=== PATIENT | male | born 1980 | race Caucasian/White ===

== ENCOUNTER 2019-05-03 00:20 | Emergency (ER) | payer OTHER ==
[2019-05-03] MEDS ORDERED: Pepcid 20 MG VIAL IV ONE ×2 (01:18→01:38)
[2019-05-03] MEDS ORDERED: GlucaGen 1 MG IV ONE (01:19)
[2019-05-03] MEDS ORDERED: Zofran 4 MG/2 ML VIAL IV ONE (01:20)
[2019-05-03] MEDS ORDERED: Zofran 4 MG/2 ML VIAL ONE (01:38)
[2019-05-03 01:39] LABS: Absolute Neutrophil Ct (ANC) 4.16 (1.4-6.9); BASOPHIL % 0.2 % (0.0-0.4); Basophil (Absolute #) 0.01 (0-0.4); Eosinophil % 1.5 % (0.00-5.0); Eosinophil (Absolute #) 0.08 (0-0.5); Hematocrit 45.3 % (42-50); Hemoglobin 16.1 gm/dl (12.5-18.0); Lymphocyte (Absolute #) 0.63 (1.0-4.6); Lymphocytes % 11.7 % (24.0-44.0); Mean Cell Volume 84.5 fl (78-100); Mean Corpuscular Hgb Concent. 35.5 g/dl (32-36); Mean Platelet Volume 10.1 fl (6-9.5); Monocyte (Absolute #) 0.51 (0.0-1.3); Monocytes % 9.5 % (0.0-12.0); Neutrophil % 77.1 % (36.0-66.0); Platelet Count 151 K/mm3 (150-450); Red Blood Count 5.36 M/mm3 (4.1-5.6); Red Cell Distribution Width 13.3 % (11.5-14.0); White Blood Count 5.4 K/mm3 (4.0-10.5)
[2019-05-03] MEDS ORDERED: GlucaGen 1 MG ONE (01:39)
[2019-05-03 01:49] LABS: ANION GAP 13.5 MEQ/L (5-15); BLOOD UREA NITROGEN 19 mg/dL (9-20); CHLORIDE 105 mmol/L (98-107); Calcium 8.8 mg/dL (8.4-10.2); Carbon Dioxide 25 mmol/L (22-30); Creatinine 1 1.13 mg/dL (0.66-1.25); Glucose 127 mg/dL (74-106); Potassium 3.9 mmol/L (3.5-5.1); SODIUM 139 mmol/L (137-145)
--- NOTE | 2019-05-03 02:16 | ERPHSYRPT ---
- History of Present Illness Time Seen by Provider: 05/03/19 00:50 Historian: patient Exam Limitations: no limitations Patient Subjective Stated Complaint: pt states that on Tuesday he had injury to the left hand, pt states that he went to [facility] and wound cleaned and started on antibiotic, pt states that he was given clarithromycin, pt states that he took first dose Tuesday night, pt states he took a second dose on Tuesday , pt states that he began to feel dizzy after first dose and by the second dose he had halos, pt stop taking medication and began doxy, pt states that tonight he was laying in bed and had a burning and irritation to the stomach, pt took 3 OTC antinausea pills, pt states that he threw up a golf ball size dark red blood clot Triage Nursing Assessment: pt ambulated into the ER, pt AxO x3, pt has soft round abdomen, pt has active bowel sounds, pt has tenderness to upper midline abdomen, vitals wnl Physician History: ATE CHICKEN AT APPROX. 5:30 YESTERDAY SINCE THEN HAS NOT BEEN ABLE TO EAT OR DRINK FLUIDS W/O THROWING UP . POS: HX : GERD Timing/Duration: today, constant, worse Activities at Onset: none Quality: aching, pressure, tightness Abdominal Pain Onset Location: epigastric Pain Radiation: no radiation Severity of Pain-Max: mild Severity of Pain-Current: moderate Modifying Factors: Improves With: eating, lying down, other (DRINKING FLUIDS ) Associated Symptoms: denies symptoms, back, chest pain, diaphoresis Previous symptoms: no prior history Allergies/Adverse Reactions: clarithromycin Allergy (Severe, Verified 05/03/19 00:58) Lightheadedness Sulfa (Sulfonamide Antibiotics) Allergy (Severe, Verified 05/03/19 00:58) Difficulty Breathing aspirin Allergy (Intermediate, Verified 05/03/19 00:58) Difficulty Breathing tramadol HCl [From Ultram] Allergy (Intermediate, Verified 05/03/19 00:58) Difficulty Breathing Penicillins Allergy (Mild, Verified 05/03/19 00:58) Difficulty Breathing Home Medications: Ibuprofen [Advil] 400 mg PO BID 05/03/19 [History] Hx Tetanus, Diphtheria Vaccination/Date Given: Yes Hx Influenza Vaccination/Date Given: No Hx Pneumococcal Vaccination/Date Given: No - Review of Systems Constitutional: No Symptoms Eyes: No Symptoms Ears, Nose, & Throat: Nose Congestion Respiratory: No Symptoms Cardiac: No Symptoms Abdominal/Gastrointestinal: Abdominal Pain, Nausea, Vomiting, Hematemesis, No Diarrhea, No Hematochezia, No Melena Genitourinary Symptoms: No Symptoms Musculoskeletal: No Symptoms Skin: No Symptoms Neurological: No Symptoms Psychological: No Symptoms Endocrine: No Symptoms Hematologic/Lymphatic: No Symptoms All Other Systems: Reviewed and Negative - Past Medical History Pertinent Past Medical History: Yes Neurological History: Migraines GI Medical History: GERD Psycho-Social History: Depression - Past Surgical History Past Surgical History: Yes Musculoskeletal: Orthopedic Surgery Other Surgical History: r rib resection - hernia repair - Social History Smoking Status: Never smoker Exposure to second hand smoke: No Drug Use: none Patient Lives Alone: No - Nursing Vital Signs Nursing Vital Signs: Initial Vital Signs Temperature 98.3 F 05/03/19 00:25 Respiratory Rate 13 05/03/19 00:25 Blood Pressure 143/89 05/03/19 00:25 Pain Scale Pain Intensity 0 - Physical Exam General Appearance: mild distress Eye Exam: PERRL/EOMI, eyes nml inspection Ears, Nose, Throat Exam: normal ENT inspection Neck Exam: normal inspection Respiratory Exam: normal breath sounds, lungs clear, No chest tenderness, No respiratory distress Cardiovascular Exam: regular rate/rhythm, normal heart sounds, No murmur Gastrointestinal/Abdomen Exam: soft, tenderness (EPIGASTRIC), No guarding Extremity Exam: normal inspection, normal range of motion, pelvis stable, No calf tenderness, No deformities Neurologic Exam: alert, oriented x 3, cooperative, 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, normal mood/affect, nml cerebellar function, nml station & gait Skin Exam: normal color Lymphatic Exam: adenopathy SpO2 Interpretation: normal O2 Delivery: Room Air - Course Nursing assessment & vital signs reviewed: Yes Ordered Tests: Active Orders 24 hr Category Date Time Status IV Insertion STAT Care 05/03/19 01:16 Active KUB Stat Exams 05/03/19 02:03 Taken BMP Stat Lab 05/03/19 01:35 Completed CBC W DIFF Stat Lab 05/03/19 01:35 Completed Medication Summary Discontinued Medications Generic Name Dose Route Start Last Admin Trade Name Freq PRN Reason Stop Dose Admin Al Hydrox/Mg Hydrox/Simethicone Confirm 05/03/19 02:38 Maalox Es 30 Ml Unit Dose Administered 05/03/19 02:39 Dose 30 ml .ROUTE .STK-MED ONE Famotidine 20 mg 05/03/19 01:18 05/03/19 01:44 Pepcid 20 Mg Vial IV 05/03/19 01:19 20 mg STAT ONE Administration Famotidine Confirm 05/03/19 01:38 Pepcid 20 Mg Vial Administered 05/03/19 01:39 Dose 20 mg IV .STK-MED ONE Glucagon 1 mg 05/03/19 01:19 05/03/19 01:44 Glucagen 1 Mg IV 05/03/19 01:20 1 mg STAT ONE Administration Glucagon Confirm 05/03/19 01:39 Glucagen 1 Mg Administered 05/03/19 01:40 Dose 1 mg .ROUTE .STK-MED ONE Lidocaine HCl Confirm 05/03/19 02:38 Xylocaine Hcl Viscous * Administered 05/03/19 02:39 Dose 15 ml .ROUTE .STK-MED ONE Magnesium Hydroxide 45 ml 05/03/19 02:31 05/03/19 02:45 Gi Cocktail 45 Ml (Maalox/Lidocaine) PO 05/03/19 02:32 45 ml STAT ONE Administration Ondansetron HCl 4 mg 05/03/19 01:20 05/03/19 01:43 Zofran 4 Mg/2 Ml Vial IV 05/03/19 01:21 4 mg STAT ONE Administration Ondansetron HCl Confirm 05/03/19 01:38 Zofran 4 Mg/2 Ml Vial Administered 05/03/19 01:39 Dose 4 mg .ROUTE .STK-MED ONE Lab/Rad Data: Laboratory Result Diagrams 05/03/19 01:35 05/03/19 01:35 Laboratory Results 05/03/19 05/03/19 Range/Units 01:35 01:35 WBC 5.4 (4.0-10.5) K/mm3 RBC 5.36 (4.1-5.6) M/mm3 Hgb 16.1 (12.5-18.0) gm/dl Hct 45.3 (42-50) % MCV 84.5 (78-100) fl MCH 30.0 (26-32) pg MCHC 35.5 (32-36) g/dl RDW 13.3 (11.5-14.0) % Plt Count 151 (150-450) K/mm3 MPV 10.1 H (6-9.5) fl Gran % 77.1 H (36.0-66.0) % Eos # (Auto) 0.08 (0-0.5) Absolute Lymphs (auto) 0.63 L (1.0-4.6) Absolute Monos (auto) 0.51 (0.0-1.3) Lymphocytes % 11.7 L (24.0-44.0) % Monocytes % 9.5 (0.0-12.0) % Eosinophils % 1.5 (0.00-5.0) % Basophils % 0.2 (0.0-0.4) % Absolute Granulocytes 4.16 (1.4-6.9) Basophils # 0.01 (0-0.4) Sodium 139 (137-145) mmol/L Potassium 3.9 (3.5-5.1) mmol/L Chloride 105 (98-107) mmol/L Carbon Dioxide 25 (22-30) mmol/L Anion Gap 13.5 (5-15) MEQ/L BUN 19 (9-20) mg/dL Creatinine 1.13 (0.66-1.25) mg/dL Estimated GFR > 60.0 ML/MIN Glucose 127 H (74-106) mg/dL Calcium 8.8 (8.4-10.2) mg/dL - Progress Progress: improved Counseled pt/family regarding: lab results, diagnosis, need for follow-up, rad results - Departure Departure Disposition: Home Clinical Impression: Erosive esophagitis Acute gastritis without bleeding Qualifiers: Gastritis type: unspecified gastritis Qualified Code(s): K29.00 - Acute gastritis without bleeding Condition: Stable Critical Care Time: No Referrals: ROSELINE GAN [Primary Care Provider] - Additional Instructions: DR MACKEY --GEN SURG FOR EGD SCOPE DISCUSSED RN TO GIVE CONTACT INSTRUCTION DIET DISCUSSED IN THE ER
[2019-05-03] MEDS ORDERED: GI COCKTAIL 45 ML (Maalox/Lidocaine) PO ONE (02:31)
[2019-05-03] MEDS ORDERED: XYLOCAINE HCl Viscous ONE (02:38)
[2019-05-03] MEDS ORDERED: MAALOX ES 30 ML UNIT DOSE ONE (02:38)
[2019-05-03 04:20] VITALS: BP 126/77; PULSE 61; O2SAT 97
--- NOTE | 2019-05-03 08:53 | XRAY ---
Indication: Vomiting blood. Comparison: July 29, 2007. KUB again demonstrates mild diffuse scattered colonic fecal debris. No focal bowel dilatation, obstruction, or large free air. Solid organs and osseous structures unremarkable. Lung bases are clear. Impression: Mild fecal stasis without obstruction.
== END 2019-05-03 04:28 | disposition home or self-care (01) ==
LOC: ED 00:20
DX: K22.10 Ulcer of esophagus without bleeding (principal); K29.00 Acute gastritis without bleeding
CPT/HCPCS: 36000; 36415; 74018; 80048; 85025; 96374; 96375; 99284; J1610; J2405; A9270-GY

== ENCOUNTER 2020-07-23 09:30 | Emergency (ER) | payer OTHER ==
[2020-07-23] MEDS ORDERED: Zofran 4 MG/2 ML VIAL IV ONE (09:46)
--- NOTE | 2020-07-23 09:46 | ERPHSYRPT ---
- History of Present Illness Time Seen by Provider: 07/23/20 09:46 Historian: patient Exam Limitations: no limitations Physician History: This is a 40-year-old white male has a history of PTSD and gastroesophageal reflux disease as well as right side thoracic outlet syndrome requiring surgical intervention in the past and presents with 1 day history of left anterior chest pain that radiates into his left shoulder. Patient does do a lot of heavy weight lifting on a daily basis. He is concerned that he might have torn a muscle or he has a blood clot present. Patient cannot take aspirin. He has taken Vicodin as well as long-acting morphine in the past. He has also taken Toradol in the past and is on daily ibuprofen. He is not short of breath. He had no fever. He has no cough but did notice that when he sneezed there was significant pain in the same area. He has had no direct chest trauma. His primary care physician is Dr. Greenberg Activities at Onset: none Quality: sharpness, stabbing Location: other (Left anterior chest wall) Chest Pain Radiation: arm (Left shoulder) Severity of Pain-Max: moderate Severity of Pain-Current: moderate Modifying Factors: Improves With: movement Associated Symptoms: hurts to breathe, No shortness of breath, No cough Prior Chest Pain/Cardiac Workup: no prior chest pain Nitro Today/Relief: no nitro taken today Aspirin Treatment Today: no aspirin today Allergies/Adverse Reactions: clarithromycin Allergy (Severe, Verified 07/23/20 09:37) Lightheadedness Sulfa (Sulfonamide Antibiotics) Allergy (Severe, Verified 07/23/20 09:37) Difficulty Breathing aspirin Allergy (Intermediate, Verified 07/23/20 09:37) Difficulty Breathing tramadol HCl [From Ultram] Allergy (Intermediate, Verified 07/23/20 09:37) Difficulty Breathing Penicillins Allergy (Mild, Verified 07/23/20 09:37) Difficulty Breathing Home Medications: Ibuprofen [Advil] 400 mg PO BID 05/03/19 [History] Fluoxetine HCl 20 mg [Prozac 20 MG] 1 ea DAILY 07/23/20 [History] Fluticasone Furoate [Veramyst] 1 ea DAILY 07/23/20 [History] Omeprazole Magnesium [Prilosec Otc] 1 ea DAILY 07/23/20 [History] Hx Tetanus, Diphtheria Vaccination/Date Given: Yes Hx Influenza Vaccination/Date Given: No Hx Pneumococcal Vaccination/Date Given: No Travel Risk - International Travel Have you traveled outside of the country in past 3 weeks: No - Coronavirus Screening Are you exhibiting any of the following symptoms?: No Close contact with a COVID-19 positive Pt in past 14-21 Days: No - Review of Systems Constitutional: No Symptoms Eyes: No Symptoms Ears, Nose, & Throat: No Symptoms Respiratory: No Symptoms Cardiac: Chest Pain Abdominal/Gastrointestinal: No Symptoms Genitourinary Symptoms: No Symptoms Musculoskeletal: No Symptoms Skin: No Symptoms Neurological: No Symptoms Psychological: No Symptoms Endocrine: No Symptoms Hematologic/Lymphatic: No Symptoms Immunological/Allergic: No Symptoms All Other Systems: Reviewed and Negative - Past Medical History Pertinent Past Medical History: Yes Neurological History: Migraines, Other Cardiac History: No Pertinent History Respiratory History: No Pertinent History Endocrine Medical History: No Pertinent History Musculoskeletal History: Fractures, Other GI Medical History: GERD, Other Psycho-Social History: Depression, Other Other Medical History: HX SURGERY LEFT WRIST FOR TORN CARTILAGE AND CARPAL TUNNEL 10/29/19. HX OF BILATERAL CARTILAGE TEARS WITH HX OF 2 ARTHROSCOPIC SURGERIES EACH KNEE. MOST RECENT SURGERY 2010. HX [place]T ANKLE SURGERIES DUE TO TORN LIGAMENTS. PATIENT STATES HE IS UNABLE TO REMEMBER DATES. ptsd, hital hernia. FX RIGHT FOREARM CHILD. RIGHT UPPER RIB RESECTION WITH BLOOD CLOT REMOVAL DUE TO TOS. INGUINAL HERNIA REPAIR LEFT. TONSILLECTOMY - Past Surgical History Past Surgical History: Yes Respiratory: Other Gastrointestinal: Hernia Repair Musculoskeletal: Orthopedic Surgery Other Surgical History: r rib resection - hernia repair, thoraic outlet syndrome k,arm surgery - Social History Smoking Status: Never smoker Exposure to second hand smoke: No Drug Use: none Patient Lives Alone: No - Nursing Vital Signs Nursing Vital Signs: Initial Vital Signs Temperature 97.2 F 07/23/20 09:31 Pulse Rate 67 07/23/20 09:31 Respiratory Rate 18 07/23/20 09:31 Blood Pressure 151/106 07/23/20 09:31 O2 Sat by Pulse Oximetry 97 07/23/20 09:31 Pain Scale Pain Intensity 5 - Physical Exam General Appearance: no apparent distress, alert, anxiety Eye Exam: PERRL/EOMI, eyes nml inspection Ears, Nose, Throat Exam: normal ENT inspection, moist mucous membranes Neck Exam: normal inspection, non-tender, supple, full range of motion Respiratory Exam: normal breath sounds, chest tenderness, lungs clear (Chest wall left anterior chest), airway intact, No respiratory distress Cardiovascular Exam: regular rate/rhythm, normal heart sounds, normal peripheral pulses Gastrointestinal/Abdomen Exam: soft, normal bowel sounds, No tenderness Back Exam: normal inspection, normal range of motion, No CVA tenderness, No vertebral tenderness Extremity Exam: normal inspection, normal range of motion, pelvis stable Neurologic Exam: alert, oriented x 3, cooperative, 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 No acute ischemic changes on today's EKG.) Ordered Tests: Active Orders 24 hr Category Date Time Status Eap Clinician STAT Care 07/23/20 09:49 Active EKG-ER Only STAT Care 07/23/20 09:46 Active IV Insertion STAT Care 07/23/20 09:46 Active Pulse Oximetry (ED) STAT Care 07/23/20 09:46 Active CHEST 2 VIEWS (PA AND LAT) Stat Exams 07/23/20 10:35 Completed CBC W DIFF Stat Lab 07/23/20 10:00 Completed CMP Stat Lab 07/23/20 10:00 Completed D-DIMER QUANTITATIVE Stat Lab 07/23/20 10:00 Completed NT PRO BNP Stat Lab 07/23/20 10:00 Completed PROTIME WITH INR Stat Lab 07/23/20 10:00 Completed TROPONIN Q3H Lab 07/23/20 09:46 Completed TROPONIN Q3H Lab 07/23/20 14:15 Ordered TROPONIN Q3H Lab 07/23/20 17:15 Ordered TROPONIN Q3H Lab 07/23/20 20:15 Ordered TROPONIN Q3H Lab 07/23/20 23:15 Ordered Medication Summary Discontinued Medications Generic Name Dose Route Start Last Admin Trade Name Freq PRN Reason Stop Dose Admin Lorazepam 1 mg 07/23/20 09:49 07/23/20 10:10 Ativan 2 Mg/1 Ml Vial IV 07/23/20 09:50 1 mg STAT ONE Administration Lorazepam Confirm 07/23/20 10:00 Ativan 2 Mg/1 Ml Vial Administered 07/23/20 10:01 Dose 2 mg .ROUTE .STK-MED ONE Ondansetron HCl 4 mg 07/23/20 09:46 07/23/20 10:02 Zofran 4 Mg/2 Ml Vial IV 07/23/20 09:47 4 mg STAT ONE Administration Ondansetron HCl Confirm 07/23/20 10:01 Zofran 4 Mg/2 Ml Vial Administered 07/23/20 10:02 Dose 4 mg .ROUTE .STK-MED ONE Lab/Rad Data: Laboratory Result Diagrams 07/23/20 10:00 07/23/20 10:00 Laboratory Results 07/23/20 07/23/20 07/23/20 Range/Units 10:00 10:00 10:00 WBC 4.5 (4.0-10.5) K/mm3 RBC 5.68 H (4.1-5.6) M/mm3 Hgb 16.6 (12.5-18.0) gm/dl Hct 49.0 (42-50) % MCV 86.3 (78-100) fl MCH 29.2 (26-32) pg MCHC 33.9 (32-36) g/dl RDW 12.7 (11.5-14.0) % Plt Count 200 (150-450) K/mm3 MPV 10.6 (7.5-11.0) fl Gran % 56.1 (36.0-66.0) % Eos # (Auto) 0.06 (0-0.5) Absolute Lymphs (auto) 1.44 (1.0-4.6) Absolute Monos (auto) 0.46 (0.0-1.3) Lymphocytes % 32.1 (24.0-44.0) % Monocytes % 10.3 (0.0-12.0) % Eosinophils % 1.3 (0.00-5.0) % Basophils % 0.2 (0.0-0.4) % Absolute Granulocytes 2.51 (1.4-6.9) Basophils # 0.01 (0-0.4) PT 12.3 (8.83-12.87) SECONDS INR 1.09 (0.8-3.0) D-Dimer < 215 L (215-500) ng/mL Sodium 138 (137-145) mmol/L Potassium 3.7 (3.5-5.1) mmol/L Chloride 102 (98-107) mmol/L Carbon Dioxide 24 (22-30) mmol/L Anion Gap 16.3 H (5-15) MEQ/L BUN 17 (9-20) mg/dL Creatinine 1.12 (0.66-1.25) mg/dL Estimated GFR > 60.0 ML/MIN Glucose 134 H (74-106) mg/dL Calcium 9.5 (8.4-10.2) mg/dL Total Bilirubin 0.60 (0.2-1.3) mg/dL AST 51 (17-59) U/L ALT 37 (0-50) U/L Alkaline Phosphatase 83 (38-126) U/L Troponin I (0.000-0.034) ng/mL NT-Pro-B Natriuret Pep 11.3 (0-450) pg/mL Serum Total Protein 7.8 (6.3-8.2) g/dL Albumin 4.7 (3.5-5.0) g/dL 07/23/20 Range/Units 09:46 WBC (4.0-10.5) K/mm3 RBC (4.1-5.6) M/mm3 Hgb (12.5-18.0) gm/dl Hct (42-50) % MCV (78-100) fl MCH (26-32) pg MCHC (32-36) g/dl RDW (11.5-14.0) % Plt Count (150-450) K/mm3 MPV (7.5-11.0) fl Gran % (36.0-66.0) % Eos # (Auto) (0-0.5) Absolute Lymphs (auto) (1.0-4.6) Absolute Monos (auto) (0.0-1.3) Lymphocytes % (24.0-44.0) % Monocytes % (0.0-12.0) % Eosinophils % (0.00-5.0) % Basophils % (0.0-0.4) % Absolute Granulocytes (1.4-6.9) Basophils # (0-0.4) PT (8.83-12.87) SECONDS INR (0.8-3.0) D-Dimer (215-500) ng/mL Sodium (137-145) mmol/L Potassium (3.5-5.1) mmol/L Chloride (98-107) mmol/L Carbon Dioxide (22-30) mmol/L Anion Gap (5-15) MEQ/L BUN (9-20) mg/dL Creatinine (0.66-1.25) mg/dL Estimated GFR ML/MIN Glucose (74-106) mg/dL Calcium (8.4-10.2) mg/dL Total Bilirubin (0.2-1.3) mg/dL AST (17-59) U/L ALT (0-50) U/L Alkaline Phosphatase (38-126) U/L Troponin I < 0.012 (0.000-0.034) ng/mL NT-Pro-B Natriuret Pep (0-450) pg/mL Serum Total Protein (6.3-8.2) g/dL Albumin (3.5-5.0) g/dL - Progress Progress: improved, re-examined Air Movement: good Progress Note: 07/23/20 11:13 Chest x-ray shows no acute cardiopulmonary process 07/23/20 11:47 Medical decision making: This patient likely has a muscle strain on his chest wall. His pain significantly improved with the muscle relaxant. Today, the patient contacted his primary care physician's office and he has an appointment scheduled with him tomorrow. His cardiac work-up here today is negative. He is more comfortable and states that he feels comfortable going home and he will follow up with Dr. Greenberg's office tomorrow. Blood Culture(s) Obtained: No Antibiotics given: No Counseled pt/family regarding: lab results, diagnosis, need for follow-up, rad results - Departure Departure Disposition: Home Clinical Impression: Chest wall pain Condition: Stable Critical Care Time: No Referrals: ALICIA CONCEPCION Jr., MD [Primary Care Provider] - Additional Instructions: Follow-up with your primary care doctor for further management. Take your medication as prescribed. Continue your ibuprofen as prescribed. Stop heavy lifting until after you are evaluated by your primary care physician and released to return to full activity. Prescriptions: Hydrocodone/APAP 5/325 [[place] 5/325 mg] 1 each PO Q8H PRN PRN #6 tablet MDD 3 PRN Reason: Pain
[2020-07-23] MEDS ORDERED: Ativan 2 MG/1 ML VIAL IV ONE (09:49)
[2020-07-23] MEDS ORDERED: Ativan 2 MG/1 ML VIAL ONE (10:00)
[2020-07-23] MEDS ORDERED: Zofran 4 MG/2 ML VIAL ONE (10:01)
[2020-07-23 10:23] LABS: INR 1.09 (0.8-3.0); PROTIME 12.3 SECONDS (8.83-12.87)
[2020-07-23 10:28] LABS: D-DIMER QUANTITATIVE < 215 ng/mL (215-500)
[2020-07-23 10:30] LABS: Absolute Neutrophil Ct (ANC) 2.51 (1.4-6.9); BASOPHIL % 0.2 % (0.0-0.4); Basophil (Absolute #) 0.01 (0-0.4); Eosinophil % 1.3 % (0.00-5.0); Eosinophil (Absolute #) 0.06 (0-0.5); Hemoglobin 16.6 gm/dl (12.5-18.0); Lymphocyte (Absolute #) 1.44 (1.0-4.6); Lymphocytes % 32.1 % (24.0-44.0); Mean Cell Volume 86.3 fl (78-100); Mean Corpuscular Hemoglobin 29.2 pg (26-32); Mean Corpuscular Hgb Concent. 33.9 g/dl (32-36); Mean Platelet Volume 10.6 fl (7.5-11.0); Monocyte (Absolute #) 0.46 (0.0-1.3); Monocytes % 10.3 % (0.0-12.0); Neutrophil % 56.1 % (36.0-66.0); Platelet Count 200 K/mm3 (150-450); Red Blood Count 5.68 M/mm3 (4.1-5.6); Red Cell Distribution Width 12.7 % (11.5-14.0); White Blood Count 4.5 K/mm3 (4.0-10.5)
[2020-07-23 10:35] LABS: ALBUMIN 4.7 g/dL (3.5-5.0); ALKALINE PHOSPHATASE 83 U/L (38-126); ANION GAP 16.3 MEQ/L (5-15); BLOOD UREA NITROGEN 17 mg/dL (9-20); CHLORIDE 102 mmol/L (98-107); Calcium 9.5 mg/dL (8.4-10.2); Carbon Dioxide 24 mmol/L (22-30); Creatinine 1 1.12 mg/dL (0.66-1.25); EST GLOMERULAR FILTRATION RATE > 60.0 ML/MIN; Glucose 134 mg/dL (74-106); NT PRO BNP 11.3 pg/mL (0-450); Potassium 3.7 mmol/L (3.5-5.1); SGOT/AST 51 U/L (17-59); SGPT/ALT 37 U/L (0-50); SODIUM 138 mmol/L (137-145); Total Protein 7.8 g/dL (6.3-8.2)
--- NOTE | 2020-07-23 10:43 | XRAY ---
Indication: Chest and shoulder pain. Comparison: April 13, 2019. PA/lateral chest again demonstrates normal heart, lungs, and bony thorax with incidental left upper lobe calcified granulomas, right apical surgical clips, and right 1st rib resection.
[2020-07-23 11:53] VITALS: BP 133/81; PULSE 64; O2SAT 95
== END 2020-07-23 11:57 | disposition home or self-care (01) ==
LOC: ED 09:30
DX: R07.89 Other chest pain (principal); K21.9 Gastro-esophageal reflux disease without esophagitis; F43.12 Post-traumatic stress disorder, chronic; Z79.899 Other long term (current) drug therapy
CPT/HCPCS: 36000; 36415; 71046; 80053; 83880; 84484; 85025; 85379; 85610; 93005; 93041; 94760; 96374; 96375; 99284; J2060; J2405

== ENCOUNTER 2020-10-15 10:13 | Emergency (ER) | payer OTHER ==
[2020-10-15 10:30] LABS: Absolute Neutrophil Ct (ANC) 3.33 (1.4-6.9); BASOPHIL % 0.4 % (0.0-0.4); Basophil (Absolute #) 0.02 (0-0.4); Eosinophil % 1.3 % (0.00-5.0); Eosinophil (Absolute #) 0.07 (0-0.5); Hematocrit 48.9 % (42-50); Hemoglobin 16.9 gm/dl (12.5-18.0); Lymphocyte (Absolute #) 1.42 (1.0-4.6); Mean Corpuscular Hemoglobin 29.4 pg (26-32); Mean Corpuscular Hgb Concent. 34.6 g/dl (32-36); Mean Platelet Volume 9.8 fl (7.5-11.0); Monocyte (Absolute #) 0.41 (0.0-1.3); Monocytes % 7.8 % (0.0-12.0); Neutrophil % 63.5 % (36.0-66.0); Platelet Count 204 K/mm3 (150-450); Red Blood Count 5.75 M/mm3 (4.1-5.6); Red Cell Distribution Width 12.7 % (11.5-14.0); White Blood Count 5.3 K/mm3 (4.0-10.5)
--- NOTE | 2020-10-15 10:35 | XRAY ---
Indication: Chest pain. Comparison: July 23, 2020. Portable chest again demonstrates normal heart, lungs, and bony thorax with incidental left upper lobe calcified granuloma, right apical surgical clips, and right 1st rib resection.
[2020-10-15 10:37] LABS: INR 1.09 (0.8-3.0); PROTIME 12.3 SECONDS (8.83-12.87)
[2020-10-15] MEDS ORDERED: PROTONIX 40 MG IV IV ONE ×2 (10:38→10:43)
[2020-10-15 10:39] LABS: PTT 33.5 SECONDS (24.1-36.1)
[2020-10-15 10:50] LABS: ALBUMIN 4.8 g/dL (3.5-5.0); ALKALINE PHOSPHATASE 85 U/L (38-126); ANION GAP 14.4 MEQ/L (5-15); BLOOD UREA NITROGEN 10 mg/dL (9-20); CHLORIDE 100 mmol/L (98-107); Calcium 9.5 mg/dL (8.4-10.2); Carbon Dioxide 28 mmol/L (22-30); Creatinine 1 1.08 mg/dL (0.66-1.25); EST GLOMERULAR FILTRATION RATE > 60.0 ML/MIN; Glucose 114 mg/dL (74-106); NT PRO BNP 23.3 pg/mL (0-450); SGOT/AST 83 U/L (17-59); SGPT/ALT 145 U/L (0-50); SODIUM 139 mmol/L (137-145); Total Protein 7.8 g/dL (6.3-8.2)
--- NOTE | 2020-10-15 11:04 | ERPHSYRPT ---
- History of Present Illness Historian: patient Patient Subjective Stated Complaint: chest pain onset this am Triage Nursing Assessment: pt to ED c/o CP to mid sternum onset this am while driving to PCP appt. pt rates 10/10 pain that is tight, does not radiate, and is not alleviated or aggrivated by factors. only associated sx is occasional nausea after eating and "dizziness r/t gabapentin." heart sounds clear. skin PWD. Physician History: 40 yo wm w inferior, substernal pain which radiates superiorly x 40min. Pain w sudden onset. He denies N/V/diaphoresis/Dyspnea. Nothing makes the pain better or worse. Pt denies HTN/DM/Hyperlipidemia/tobacco use/Remote FH of CAD in grandmother. Pain was severe when he arrived to the ER but has been subsiding since arrival to ER. He had a Roxanna procedure in [facility] 3 months ago and has been having problems since the procedure. Timing/Duration: other (40 min) Activities at Onset: rest Quality: other (gas bubble) Location: substernal Severity of Pain-Max: severe Severity of Pain-Current: moderate Modifying Factors: Improves With: nothing Associated Symptoms: No nausea, No vomiting, No palpitations, No heartburn, No abdominal pain, No shortness of breath, No cough, No hurts to breathe, No diaphoresis, No chills, No fever, No fatigue, No weakness, No swelling/lump in chest, No syncope, No rash, No headache, No dizziness, No edema, No back pain Prior Chest Pain/Cardiac Workup: no prior chest pain Nitro Today/Relief: no nitro taken today Aspirin Treatment Today: no aspirin today Allergies/Adverse Reactions: clarithromycin Allergy (Severe, Verified 10/15/20 10:36) Lightheadedness Sulfa (Sulfonamide Antibiotics) Allergy (Severe, Verified 10/15/20 10:36) Difficulty Breathing aspirin Allergy (Intermediate, Verified 10/15/20 10:36) Difficulty Breathing tramadol HCl [From Ultram] Allergy (Intermediate, Verified 10/15/20 10:36) Difficulty Breathing Penicillins Allergy (Mild, Verified 10/15/20 10:36) Difficulty Breathing Home Medications: Ibuprofen [Advil] 400 mg PO BID 05/03/19 [History] Fluoxetine HCl 20 mg [Prozac 20 MG] 1 ea DAILY 07/23/20 [History] Fluticasone Furoate [Veramyst] 1 ea DAILY 07/23/20 [History] Omeprazole Magnesium [Prilosec Otc] 1 ea DAILY 07/23/20 [History] Ciprofloxacin HCl [Cipro] 250 mg PO BID 10/15/20 [History] Dicyclomine HCl 20 mg [Bentyl 20 mg] 20 mg PO TID PRN 10/15/20 [History] Diphenoxylate HCl/Atropine [Lomotil] 1 udtab PO TID PRN 10/15/20 [History] Metronidazole 500 mg [Flagyl 500 MG] 500 mg PO BID 10/15/20 [History] Hx Tetanus, Diphtheria Vaccination/Date Given: Yes Hx Influenza Vaccination/Date Given: No Hx Pneumococcal Vaccination/Date Given: No Travel Risk - International Travel Have you traveled outside of the country in past 3 weeks: No - Coronavirus Screening Are you exhibiting any of the following symptoms?: No Close contact with a COVID-19 positive Pt in past 14-21 Days: No - Vaccine Status Have you recieved a Covid-19 vaccination: No - Review of Systems Constitutional: No Symptoms Eyes: No Symptoms Ears, Nose, & Throat: No Symptoms Respiratory: No Symptoms Cardiac: Chest Pain Abdominal/Gastrointestinal: No Symptoms Genitourinary Symptoms: No Symptoms Musculoskeletal: No Symptoms Skin: No Symptoms Neurological: No Symptoms Psychological: No Symptoms Endocrine: No Symptoms Hematologic/Lymphatic: No Symptoms Immunological/Allergic: No Symptoms - Past Medical History Pertinent Past Medical History: Yes Neurological History: Migraines, Other Cardiac History: No Pertinent History Respiratory History: No Pertinent History Endocrine Medical History: No Pertinent History Musculoskeletal History: Fractures, Other GI Medical History: GERD, Other Psycho-Social History: Depression, Other Other Medical History: HX SURGERY LEFT WRIST FOR TORN CARTILAGE AND CARPAL TUNNEL 10/29/19. HX OF BILATERAL CARTILAGE TEARS WITH HX OF 2 ARTHROSCOPIC SURGERIES EACH KNEE. MOST RECENT SURGERY 2010. HX ROOSEVELT ANKLE SURGERIES DUE TO TORN LIGAMENTS. PATIENT STATES HE IS UNABLE TO REMEMBER DATES. ptsd, hital hernia. FX RIGHT FOREARM CHILD. RIGHT UPPER RIB RESECTION WITH BLOOD CLOT REMOVAL DUE TO TOS. INGUINAL HERNIA REPAIR LEFT. TONSILLECTOMY - Past Surgical History Past Surgical History: Yes Respiratory: Other Gastrointestinal: Hernia Repair Musculoskeletal: Orthopedic Surgery Other Surgical History: r rib resection - hernia repair, thoraic outlet syndrome k,arm surgery - Social History Smoking Status: Never smoker Exposure to second hand smoke: No Drug Use: none Patient Lives Alone: No Significant Family History: no pertinent family hx - Nursing Vital Signs Nursing Vital Signs: Initial Vital Signs Temperature 98.6 F 10/15/20 10:14 Pulse Rate 75 10/15/20 10:14 Respiratory Rate 16 10/15/20 10:14 Blood Pressure 166/107 10/15/20 10:14 O2 Sat by Pulse Oximetry 98 10/15/20 10:14 Pain Scale Pain Intensity 0 - Physical Exam General Appearance: no apparent distress, anxiety Eye Exam: PERRL/EOMI, eyes nml inspection Ears, Nose, Throat Exam: normal ENT inspection, TMs normal, pharynx normal, moist mucous membranes Neck Exam: normal inspection, non-tender, supple, full range of motion, No meningismus, No mass, No Brudzinski, No Kernig's Respiratory Exam: normal breath sounds, lungs clear, airway intact, No chest tenderness, No respiratory distress Cardiovascular Exam: regular rate/rhythm, normal heart sounds, normal peripheral pulses, No murmur, No friction rub Gastrointestinal/Abdomen Exam: soft, normal bowel sounds, No tenderness Back Exam: normal inspection, normal range of motion, No CVA tenderness Extremity Exam: normal inspection, normal range of motion Neurologic Exam: alert, oriented x 3, cooperative, doctor of nursing practice II-XII nml as tested, normal mood/affect, nml cerebellar function, nml station & gait, sensation nml, No motor deficits, No sensory deficit Skin Exam: normal color, warm, dry Lymphatic Exam: No adenopathy SpO2 Interpretation: normal SpO2: 98 O2 Delivery: Room Air - Course EKG Interpreted by Me: RATE (NSR/R62/Normal QT-QTc/No acute ST-Twave changes) - CT Exams Chest CT Interpretation: Negative (Nothing acute) Ordered Tests: Active Orders 24 hr Category Date Time Status EKG-ER Only STAT Care 10/15/20 10:16 Completed IV Insertion STAT Care 10/15/20 13:10 Completed CHEST 1 VIEW (PORTABLE) Stat Exams 10/15/20 10:16 Completed CBC W DIFF Stat Lab 10/15/20 10:20 Completed CMP Stat Lab 10/15/20 10:20 Completed NT PRO BNP Stat Lab 10/15/20 10:20 Completed PROTIME WITH INR Stat Lab 10/15/20 10:20 Completed PTT Stat Lab 10/15/20 10:20 Completed TROPONIN Q3H Lab 10/15/20 10:20 Completed TROPONIN Q3H Lab 10/15/20 12:18 Completed Medication Summary Discontinued Medications Generic Name Dose Route Start Last Admin Trade Name Freq PRN Reason Stop Dose Admin Pantoprazole Sodium 40 mg 10/15/20 10:38 10/15/20 10:45 Protonix 40 Mg Iv IV 10/15/20 10:39 40 mg STAT ONE Administration Pantoprazole Sodium Confirm 10/15/20 10:43 Protonix 40 Mg Iv Administered 10/15/20 10:44 Dose 40 mg IV .STK-MED ONE Lab/Rad Data: Laboratory Result Diagrams 10/15/20 10:20 10/15/20 10:20 Laboratory Results 10/15/20 10/15/20 10/15/20 Range/Units 12:18 10:20 10:20 WBC (4.0-10.5) K/mm3 RBC (4.1-5.6) M/mm3 Hgb (12.5-18.0) gm/dl Hct (42-50) % MCV (78-100) fl MCH (26-32) pg MCHC (32-36) g/dl RDW (11.5-14.0) % Plt Count (150-450) K/mm3 MPV (7.5-11.0) fl Gran % (36.0-66.0) % Eos # (Auto) (0-0.5) Absolute Lymphs (auto) (1.0-4.6) Absolute Monos (auto) (0.0-1.3) Lymphocytes % (24.0-44.0) % Monocytes % (0.0-12.0) % Eosinophils % (0.00-5.0) % Basophils % (0.0-0.4) % Absolute Granulocytes (1.4-6.9) Basophils # (0-0.4) PT 12.3 (8.83-12.87) SECONDS INR 1.09 (0.8-3.0) APTT 33.5 (24.1-36.1) SECONDS Sodium (137-145) mmol/L Potassium (3.5-5.1) mmol/L Chloride (98-107) mmol/L Carbon Dioxide (22-30) mmol/L Anion Gap (5-15) MEQ/L BUN (9-20) mg/dL Creatinine (0.66-1.25) mg/dL Estimated GFR ML/MIN Glucose (74-106) mg/dL Calcium (8.4-10.2) mg/dL Total Bilirubin (0.2-1.3) mg/dL AST (17-59) U/L ALT (0-50) U/L Alkaline Phosphatase (38-126) U/L Troponin I < 0.012 < 0.012 (0.000-0.034) ng/mL NT-Pro-B Natriuret Pep (0-450) pg/mL Serum Total Protein (6.3-8.2) g/dL Albumin (3.5-5.0) g/dL 10/15/20 10/15/20 Range/Units 10:20 10:20 WBC 5.3 (4.0-10.5) K/mm3 RBC 5.75 H (4.1-5.6) M/mm3 Hgb 16.9 (12.5-18.0) gm/dl Hct 48.9 (42-50) % MCV 85.0 (78-100) fl MCH 29.4 (26-32) pg MCHC 34.6 (32-36) g/dl RDW 12.7 (11.5-14.0) % Plt Count 204 (150-450) K/mm3 MPV 9.8 (7.5-11.0) fl Gran % 63.5 (36.0-66.0) % Eos # (Auto) 0.07 (0-0.5) Absolute Lymphs (auto) 1.42 (1.0-4.6) Absolute Monos (auto) 0.41 (0.0-1.3) Lymphocytes % 27.0 (24.0-44.0) % Monocytes % 7.8 (0.0-12.0) % Eosinophils % 1.3 (0.00-5.0) % Basophils % 0.4 (0.0-0.4) % Absolute Granulocytes 3.33 (1.4-6.9) Basophils # 0.02 (0-0.4) PT (8.83-12.87) SECONDS INR (0.8-3.0) APTT (24.1-36.1) SECONDS Sodium 139 (137-145) mmol/L Potassium 4.0 (3.5-5.1) mmol/L Chloride 100 (98-107) mmol/L Carbon Dioxide 28 (22-30) mmol/L Anion Gap 14.4 (5-15) MEQ/L BUN 10 (9-20) mg/dL Creatinine 1.08 (0.66-1.25) mg/dL Estimated GFR > 60.0 ML/MIN Glucose 114 H (74-106) mg/dL Calcium 9.5 (8.4-10.2) mg/dL Total Bilirubin 0.60 (0.2-1.3) mg/dL AST 83 H (17-59) U/L ALT 145 H (0-50) U/L Alkaline Phosphatase 85 (38-126) U/L Troponin I (0.000-0.034) ng/mL NT-Pro-B Natriuret Pep 23.3 (0-450) pg/mL Serum Total Protein 7.8 (6.3-8.2) g/dL Albumin 4.8 (3.5-5.0) g/dL - Progress Progress: improved Progress Note: 10/15/20 13:07 Pt became painfree wo treatment. Pain most likely due to recent Roxanna procedure. Counseled pt/family regarding: lab results, diagnosis, need for follow-up, rad results - Departure Departure Disposition: Home Clinical Impression: Chest pain Condition: Stable Critical Care Time: No Referrals: ALICIA CONCEPCION Jr., MD [Primary Care Provider] - Instructions: Chest Pain (DC) Additional Instructions: Follow up with your family MD Return to ER for increasing pain/Shortness of breath/Temperature greater than 10 0.5
[2020-10-15 13:07] VITALS: BP 127/92; PULSE 64
[2020-10-15 13:09] VITALS: O2SAT 98
== END 2020-10-15 13:15 | disposition home or self-care (01) ==
LOC: ED 10:13
DX: R07.9 Chest pain, unspecified (principal)
CPT/HCPCS: 36000; 36415; 71045; 80053; 83880; 84484; 85025; 85610; 85730; 93005; 96374; 99284

== ENCOUNTER 2020-11-02 11:56 | Emergency (ER) | payer OTHER ==
--- NOTE | 2020-11-02 12:06 | ERPHSYRPT ---
- History of Present Illness Time Seen by Provider: 11/02/20 12:06 Historian: patient, family Exam Limitations: no limitations Physician History: This is a 40-year-old white male who has a history of erosive esophagitis and gastroesophageal reflux disease and underwent Roxanna fundoplication approximately 3 months ago. Since that time patient has been seen here in this emergency department with complaints of chest pain on 10/15/2020. The work-up was negative at that time. Patient does have a history of panic attacks and PTSD. He takes Xanax for this. Last time he took any Xanax was last night. Patient is concerned because he is having intermittent left upper quadrant, left rib pain that is worse than when his surgery was performed 3 months ago. He is concerned that something significant and severe is present. He was seen by his surgeon recently and given Creon tablets. No lab work or radiographic studies have been performed other than chest x-ray since his surgery. Today, he had the worst episode of the localized left upper quadrant abdominal pain and left rib pain. It occurred 10 minutes into a walk in his neighborhood. He also had some associated shortness of breath. He has had no cough. He has had no vomiting or diarrhea. Patient has associated diaphoresis. Timing/Duration: today Abdominal Pain Onset Location: [facility] Pain Radiation: chest, back Severity of Pain-Max: moderate Severity of Pain-Current: moderate Modifying Factors: Improves With: nothing Associated Symptoms: denies symptoms Previous symptoms: same symptoms as today Allergies/Adverse Reactions: clarithromycin Allergy (Severe, Verified 11/02/20 12:24) Lightheadedness Sulfa (Sulfonamide Antibiotics) Allergy (Severe, Verified 11/02/20 12:24) Difficulty Breathing aspirin Allergy (Intermediate, Verified 11/02/20 12:24) Difficulty Breathing tramadol HCl [From Ultram] Allergy (Intermediate, Verified 11/02/20 12:24) Difficulty Breathing Penicillins Allergy (Mild, Verified 11/02/20 12:24) Difficulty Breathing Home Medications: Ibuprofen [Advil] 400 mg PO BID 05/03/19 [History] Fluoxetine HCl 20 mg [Prozac 20 MG] 1 ea DAILY 07/23/20 [History] Fluticasone Furoate [Veramyst] 1 ea DAILY 07/23/20 [History] Omeprazole Magnesium [Prilosec Otc] 1 ea DAILY 07/23/20 [History] Ciprofloxacin HCl [Cipro] 250 mg PO BID 10/15/20 [History] Dicyclomine HCl 20 mg [Bentyl 20 mg] 20 mg PO TID PRN 10/15/20 [History] Diphenoxylate HCl/Atropine [Lomotil] 1 udtab PO TID PRN 10/15/20 [History] Metronidazole 500 mg [Flagyl 500 MG] 500 mg PO BID 10/15/20 [History] Hx Tetanus, Diphtheria Vaccination/Date Given: Yes Hx Influenza Vaccination/Date Given: No Hx Pneumococcal Vaccination/Date Given: No Travel Risk - International Travel Have you traveled outside of the country in past 3 weeks: No - Coronavirus Screening Are you exhibiting any of the following symptoms?: No Close contact with a COVID-19 positive Pt in past 14-21 Days: No - Vaccine Status Have you recieved a Covid-19 vaccination: No - Review of Systems Constitutional: Other Eyes: No Symptoms Ears, Nose, & Throat: No Symptoms Respiratory: No Symptoms Cardiac: No Symptoms Abdominal/Gastrointestinal: Abdominal Pain (Colitis area left upper quadrant and it includes the region of the left lowest rib anteriorly.) Genitourinary Symptoms: No Symptoms Musculoskeletal: No Symptoms Skin: No Symptoms Neurological: No Symptoms Psychological: No Symptoms Endocrine: No Symptoms Hematologic/Lymphatic: No Symptoms Immunological/Allergic: No Symptoms All Other Systems: Reviewed and Negative - Past Medical History Pertinent Past Medical History: Yes Neurological History: Migraines, Other Cardiac History: No Pertinent History Respiratory History: No Pertinent History Endocrine Medical History: No Pertinent History Musculoskeletal History: Fractures, Other GI Medical History: GERD, Other Psycho-Social History: Depression, Other Other Medical History: HX SURGERY LEFT WRIST FOR TORN CARTILAGE AND CARPAL TUNNEL 10/29/19. HX OF BILATERAL CARTILAGE TEARS WITH HX OF 2 ARTHROSCOPIC SURGERIES EACH KNEE. MOST RECENT SURGERY 2010. HX ROOSEVELT ANKLE SURGERIES DUE TO TORN LIGAMENTS. PATIENT STATES HE IS UNABLE TO REMEMBER DATES. ptsd, hital hernia. FX RIGHT FOREARM CHILD. RIGHT UPPER RIB RESECTION WITH BLOOD CLOT REMOVAL DUE TO TOS. INGUINAL HERNIA REPAIR LEFT. TONSILLECTOMY - Past Surgical History Past Surgical History: Yes Respiratory: Other Gastrointestinal: Hernia Repair Musculoskeletal: Orthopedic Surgery Other Surgical History: r rib resection - hernia repair, thoraic outlet syndrome k,arm surgery - Social History Smoking Status: Never smoker Exposure to second hand smoke: No Drug Use: none Patient Lives Alone: No Significant Family History: no pertinent family hx - Nursing Vital Signs Nursing Vital Signs: Initial Vital Signs Temperature 98.0 F 11/02/20 11:58 Pulse Rate 74 11/02/20 11:58 Respiratory Rate 18 11/02/20 11:58 Blood Pressure 146/94 11/02/20 11:58 O2 Sat by Pulse Oximetry 97 11/02/20 11:58 Pain Scale Pain Intensity 0 - Physical Exam General Appearance: no apparent distress, alert, anxiety Eye Exam: PERRL/EOMI, eyes nml inspection Ears, Nose, Throat Exam: normal ENT inspection, moist mucous membranes Neck Exam: normal inspection, non-tender, supple, full range of motion Respiratory Exam: normal breath sounds, chest tenderness, lungs clear, airway intact, No respiratory distress Cardiovascular Exam: regular rate/rhythm, normal heart sounds, normal peripheral pulses Gastrointestinal/Abdomen Exam: soft, normal bowel sounds, tenderness (Underwent), guarding, No rebound Rectal Exam: not done Back Exam: normal inspection, normal range of motion, No CVA tenderness, No vertebral tenderness Extremity Exam: normal inspection, normal range of motion, pelvis stable Neurologic Exam: alert, oriented x 3, cooperative, [place] II-XII nml as tested, nml cerebellar function, nml station & gait, sensation nml Skin Exam: normal color, warm, dry Lymphatic Exam: No adenopathy SpO2 Interpretation: normal O2 Delivery: Room Air - Course Nursing assessment & vital signs reviewed: Yes EKG Interpreted by Me: RATE (70), Sinus Rhythm, NORMAL AXIS, NORMAL INTERVALS, NORMAL QRS, NORMAL ST-T, Other (New onset borderline T abnormalities. This is compared to an EKG dated 10/15/2020) Ordered Tests: Active Orders 24 hr Category Date Time Status EKG-ER Only STAT Care 11/02/20 12:30 Active IV Insertion STAT Care 11/02/20 12:26 Active ABDOMEN AND PELVIS W CONTRAST [CT] Stat Exams 11/02/20 12:29 Taken CHEST WITH CONTRAST [CT] Stat Exams 11/02/20 12:31 Taken AMYLASE Stat Lab 11/02/20 12:00 Completed CBC W DIFF Stat Lab 11/02/20 12:00 Completed CMP Stat Lab 11/02/20 12:00 Completed LIPASE Stat Lab 11/02/20 12:00 Completed Lactic Acid Stat Lab 11/02/20 12:26 Completed Lactic Acid Stat Lab 11/02/20 14:48 Completed TROPONIN Q3H Lab 11/02/20 12:00 Completed TROPONIN Q3H Lab 11/02/20 15:30 Completed TROPONIN Q3H Lab 11/02/20 18:30 Ordered TROPONIN Q3H Lab 11/02/20 21:30 Ordered TROPONIN Q3H Lab 11/03/20 00:30 Ordered UA W/RFX UR CULTURE Stat Lab 11/02/20 12:40 Completed Medication Summary Discontinued Medications Generic Name Dose Route Start Last Admin Trade Name Freq PRN Reason Stop Dose Admin Hydromorphone HCl 1 mg 11/02/20 12:31 11/02/20 12:39 Hydromorphone 1 Mg/Ml Injection IV 11/02/20 12:32 1 mg STAT ONE Administration Hydromorphone HCl Confirm 11/02/20 12:36 Hydromorphone 1 Mg/Ml Injection Administered 11/02/20 12:37 Dose 1 mg .ROUTE .STK-MED ONE Sodium Chloride 1,000 mls @ 999 mls/hr 11/02/20 12:26 11/02/20 14:22 Sodium Chloride 0.9% 1000 Ml IV 11/02/20 13:26 Infused .Q1H1M STA Infusion Sodium Chloride Confirm 11/02/20 12:36 Sodium Chloride 0.9% 1000 Ml Administered 11/02/20 12:37 Dose 1,000 mls @ ud .ROUTE .STK-MED ONE Lorazepam 1 mg 11/02/20 16:16 Ativan 2 Mg/1 Ml Vial IV 11/02/20 16:17 STAT ONE Ondansetron HCl 4 mg 11/02/20 12:31 11/02/20 12:38 Zofran 4 Mg/2 Ml Vial IV 11/02/20 12:32 4 mg STAT ONE Administration Ondansetron HCl Confirm 11/02/20 12:35 Zofran 4 Mg/2 Ml Vial Administered 11/02/20 12:36 Dose 4 mg .ROUTE .STK-MED ONE Lab/Rad Data: Laboratory Result Diagrams 11/02/20 12:00 11/02/20 12:00 Laboratory Results 11/02/20 11/02/20 11/02/20 Range/Units 15:30 14:48 12:40 WBC (4.0-10.5) K/mm3 RBC (4.1-5.6) M/mm3 Hgb (12.5-18.0) gm/dl Hct (42-50) % MCV (78-100) fl MCH (26-32) pg MCHC (32-36) g/dl RDW (11.5-14.0) % Plt Count (150-450) K/mm3 MPV (7.5-11.0) fl Gran % (36.0-66.0) % Eos # (Auto) (0-0.5) Absolute Lymphs (auto) (1.0-4.6) Absolute Monos (auto) (0.0-1.3) Lymphocytes % (24.0-44.0) % Monocytes % (0.0-12.0) % Eosinophils % (0.00-5.0) % Basophils % (0.0-0.4) % Absolute Granulocytes (1.4-6.9) Basophils # (0-0.4) Sodium (137-145) mmol/L Potassium (3.5-5.1) mmol/L Chloride (98-107) mmol/L Carbon Dioxide (22-30) mmol/L Anion Gap (5-15) MEQ/L BUN (9-20) mg/dL Creatinine (0.66-1.25) mg/dL Estimated GFR ML/MIN Glucose (74-106) mg/dL Lactic Acid 1.4 (0.4-2.0) Calcium (8.4-10.2) mg/dL Total Bilirubin (0.2-1.3) mg/dL AST (17-59) U/L ALT (0-50) U/L Alkaline Phosphatase (38-126) U/L Troponin I < 0.012 (0.000-0.034) ng/mL Serum Total Protein (6.3-8.2) g/dL Albumin (3.5-5.0) g/dL Amylase (30-110) U/L Lipase (23-300) U/L Urine Color MANAV (YELLOW) Urine Appearance CLOUDY (CLEAR) Urine pH 6.0 (5-6) Ur Specific [place] 1.020 (1.005-1.025) Urine Protein NEGATIVE (Negative) Urine Ketones NEGATIVE (NEGATIVE) Urine Blood NEGATIVE (0-5) Abiodun/ul Urine Nitrite NEGATIVE (NEGATIVE) Urine Bilirubin NEGATIVE (NEGATIVE) Urine Urobilinogen NEGATIVE (0-1) mg/dL Ur Leukocyte Esterase NEGATIVE (NEGATIVE) Urine WBC (Auto) NONE SEEN (0-5) /HPF Urine RBC (Auto) NONE (0-2) /HPF U Epithel Cells (Auto) NONE (FEW) /HPF Urine Bacteria (Auto) NONE SEEN (NEGATIVE) /HPF Urine Mucus (Auto) SLIGHT (NEGATIVE) /HPF Urine Culture Reflexed NO (NO) Urine Glucose NEGATIVE (NEGATIVE) mg/dL 11/02/20 11/02/20 11/02/20 Range/Units 12:26 12:00 12:00 WBC (4.0-10.5) K/mm3 RBC (4.1-5.6) M/mm3 Hgb (12.5-18.0) gm/dl Hct (42-50) % MCV (78-100) fl MCH (26-32) pg MCHC (32-36) g/dl RDW (11.5-14.0) % Plt Count (150-450) K/mm3 MPV (7.5-11.0) fl Gran % (36.0-66.0) % Eos # (Auto) (0-0.5) Absolute Lymphs (auto) (1.0-4.6) Absolute Monos (auto) (0.0-1.3) Lymphocytes % (24.0-44.0) % Monocytes % (0.0-12.0) % Eosinophils % (0.00-5.0) % Basophils % (0.0-0.4) % Absolute Granulocytes (1.4-6.9) Basophils # (0-0.4) Sodium 138 (137-145) mmol/L Potassium 3.5 (3.5-5.1) mmol/L Chloride 103 (98-107) mmol/L Carbon Dioxide 22 (22-30) mmol/L Anion Gap 15.9 H (5-15) MEQ/L BUN 15 (9-20) mg/dL Creatinine 1.04 (0.66-1.25) mg/dL Estimated GFR > 60.0 ML/MIN Glucose 159 H (74-106) mg/dL Lactic Acid 2.8 H (0.4-2.0) Calcium 9.3 (8.4-10.2) mg/dL Total Bilirubin 0.60 (0.2-1.3) mg/dL AST 42 (17-59) U/L ALT 46 (0-50) U/L Alkaline Phosphatase 88 (38-126) U/L Troponin I < 0.012 (0.000-0.034) ng/mL Serum Total Protein 7.1 (6.3-8.2) g/dL Albumin 4.6 (3.5-5.0) g/dL Amylase 65 (30-110) U/L Lipase 137 (23-300) U/L Urine Color (YELLOW) Urine Appearance (CLEAR) Urine pH (5-6) Ur Specific [place] (1.005-1.025) Urine Protein (Negative) Urine Ketones (NEGATIVE) Urine Blood (0-5) Abiodun/ul Urine Nitrite (NEGATIVE) Urine Bilirubin (NEGATIVE) Urine Urobilinogen (0-1) mg/dL Ur Leukocyte Esterase (NEGATIVE) Urine WBC (Auto) (0-5) /HPF Urine RBC (Auto) (0-2) /HPF U Epithel Cells (Auto) (FEW) /HPF Urine Bacteria (Auto) (NEGATIVE) /HPF Urine Mucus (Auto) (NEGATIVE) /HPF Urine Culture Reflexed (NO) Urine Glucose (NEGATIVE) mg/dL 11/02/20 Range/Units 12:00 WBC 4.9 (4.0-10.5) K/mm3 RBC 5.39 (4.1-5.6) M/mm3 Hgb 16.0 (12.5-18.0) gm/dl Hct 46.0 (42-50) % MCV 85.3 (78-100) fl MCH 29.7 (26-32) pg MCHC 34.8 (32-36) g/dl RDW 12.5 (11.5-14.0) % Plt Count 182 (150-450) K/mm3 MPV 10.4 (7.5-11.0) fl Gran % 49.4 (36.0-66.0) % Eos # (Auto) 0.06 (0-0.5) Absolute Lymphs (auto) 1.88 (1.0-4.6) Absolute Monos (auto) 0.53 (0.0-1.3) Lymphocytes % 38.4 (24.0-44.0) % Monocytes % 10.8 (0.0-12.0) % Eosinophils % 1.2 (0.00-5.0) % Basophils % 0.2 (0.0-0.4) % Absolute Granulocytes 2.42 (1.4-6.9) Basophils # 0.01 (0-0.4) Sodium (137-145) mmol/L Potassium (3.5-5.1) mmol/L Chloride (98-107) mmol/L Carbon Dioxide (22-30) mmol/L Anion Gap (5-15) MEQ/L BUN (9-20) mg/dL Creatinine (0.66-1.25) mg/dL Estimated GFR ML/MIN Glucose (74-106) mg/dL Lactic Acid (0.4-2.0) Calcium (8.4-10.2) mg/dL Total Bilirubin (0.2-1.3) mg/dL AST (17-59) U/L ALT (0-50) U/L Alkaline Phosphatase (38-126) U/L Troponin I (0.000-0.034) ng/mL Serum Total Protein (6.3-8.2) g/dL Albumin (3.5-5.0) g/dL Amylase (30-110) U/L Lipase (23-300) U/L Urine Color (YELLOW) Urine Appearance (CLEAR) Urine pH (5-6) Ur Specific [place] (1.005-1.025) Urine Protein (Negative) Urine Ketones (NEGATIVE) Urine Blood (0-5) Abiodun/ul Urine Nitrite (NEGATIVE) Urine Bilirubin (NEGATIVE) Urine Urobilinogen (0-1) mg/dL Ur Leukocyte Esterase (NEGATIVE) Urine WBC (Auto) (0-5) /HPF Urine RBC (Auto) (0-2) /HPF U Epithel Cells (Auto) (FEW) /HPF Urine Bacteria (Auto) (NEGATIVE) /HPF Urine Mucus (Auto) (NEGATIVE) /HPF Urine Culture Reflexed (NO) Urine Glucose (NEGATIVE) mg/dL - Progress Progress: improved, pain not gone completely, re-examined Progress Note: 11/02/20 13:57 Patient is undergoing CAT scan of the chest, abdomen and pelvis with contrast. Patient states that he has an allergy to seafood but no allergy to intravenous contrast dye. He has had intravenous contrast dye in the past. He has had no problems or issues with intravenous contrast dye. He underwent a CAT scan with intravenous contrast dye in this institution 2007 without any problems or issues. 11/02/20 16:18 CAT scan of the chest with contrast shows no pleural effusion no pneumothorax no pulmonary emboli no pneumonias no aortic aneurysm no cardiomegaly. CAT scan of the abdomen pelvis with contrast shows mild small bowel ileus. No evidence of bowel obstruction. Gastrointestinal contrast was allowed to progress into the large bowel. Counseled pt/family regarding: lab results, diagnosis, need for follow-up, rad results - Departure Departure Disposition: Home Clinical Impression: Chest pain, non-cardiac, Postoperative pain Condition: Stable Critical Care Time: No Referrals: ROSELINE GAN [Primary Care Provider] - Additional Instructions: Drink plenty of fluids. Follow the post Roxanna fundoplication diet. Follow-up with your primary care doctor and your surgeon tomorrow for further instructions and management.
[2020-11-02] MEDS ORDERED: Sodium Chloride 0.9% 1000 ML 1,000 ML IV STA (12:26)
[2020-11-02] MEDS ORDERED: Hydromorphone 1 mg/ml Injection IV ONE (12:31)
[2020-11-02] MEDS ORDERED: Zofran 4 MG/2 ML VIAL IV ONE (12:31)
[2020-11-02] MEDS ORDERED: Zofran 4 MG/2 ML VIAL ONE (12:35)
[2020-11-02] MEDS ORDERED: Hydromorphone 1 mg/ml Injection ONE (12:36)
[2020-11-02] MEDS ORDERED: Sodium Chloride 0.9% 1000 ML 1,000 ML ONE (12:36)
[2020-11-02 12:40] LABS: Absolute Neutrophil Ct (ANC) 2.42 (1.4-6.9); BASOPHIL % 0.2 % (0.0-0.4); Basophil (Absolute #) 0.01 (0-0.4); Eosinophil % 1.2 % (0.00-5.0); Eosinophil (Absolute #) 0.06 (0-0.5); Lymphocyte (Absolute #) 1.88 (1.0-4.6); Lymphocytes % 38.4 % (24.0-44.0); Mean Cell Volume 85.3 fl (78-100); Mean Corpuscular Hemoglobin 29.7 pg (26-32); Mean Corpuscular Hgb Concent. 34.8 g/dl (32-36); Mean Platelet Volume 10.4 fl (7.5-11.0); Monocyte (Absolute #) 0.53 (0.0-1.3); Monocytes % 10.8 % (0.0-12.0); Neutrophil % 49.4 % (36.0-66.0); Platelet Count 182 K/mm3 (150-450); Red Blood Count 5.39 M/mm3 (4.1-5.6); Red Cell Distribution Width 12.5 % (11.5-14.0); White Blood Count 4.9 K/mm3 (4.0-10.5)
[2020-11-02 12:49] LABS: ALBUMIN 4.6 g/dL (3.5-5.0); ALKALINE PHOSPHATASE 88 U/L (38-126); AMYLASE 65 U/L (30-110); ANION GAP 15.9 MEQ/L (5-15); BLOOD UREA NITROGEN 15 mg/dL (9-20); CHLORIDE 103 mmol/L (98-107); Calcium 9.3 mg/dL (8.4-10.2); Carbon Dioxide 22 mmol/L (22-30); Creatinine 1 1.04 mg/dL (0.66-1.25); EST GLOMERULAR FILTRATION RATE > 60.0 ML/MIN; Glucose 159 mg/dL (74-106); LIPASE 137 U/L (23-300); Potassium 3.5 mmol/L (3.5-5.1); SGOT/AST 42 U/L (17-59); SGPT/ALT 46 U/L (0-50); SODIUM 138 mmol/L (137-145); Total Protein 7.1 g/dL (6.3-8.2)
[2020-11-02 13:17] VITALS: O2SAT 98
[2020-11-02 13:39] LABS: Appearance CLOUDY (CLEAR); Bilirubin NEGATIVE (NEGATIVE); Blood NEGATIVE Ery/ul (0-5); Glucose NEGATIVE (NEGATIVE); Ketones NEGATIVE (NEGATIVE); Leukocyte Esterase NEGATIVE (NEGATIVE); Mucus SLIGHT /HPF (NEGATIVE); Nitrite NEGATIVE (NEGATIVE); Protein,Urine Dip NEGATIVE (Negative); Urobilinogen NEGATIVE mg/dL (0-1)
[2020-11-02 13:43] LABS: Bacteria NONE SEEN /HPF (NEGATIVE); WBC NONE SEEN /HPF (0-5)
[2020-11-02 14:13] VITALS: BP 136/83; PULSE 67
[2020-11-02] MEDS ORDERED: Ativan 2 MG/1 ML VIAL IV ONE (16:16)
[2020-11-02] MEDS ORDERED: Ativan 1 MG ONE (16:23)
--- NOTE | 2020-11-02 19:29 | XRAY ---
Indication: Left lower rib pain. Left upper quadrant pain. Multiple contiguous axial images obtained through the chest using 80 cc Isovue 370 contrast. Comparison: July 07, 2013. Lungs inflated with stable left upper lobe calcified granulomas. No suspicious pulmonary mass, infiltrate, or effusion. Heart not enlarged. Aorta is normal in course and caliber. Stable left perihilar calcified nodes. No pathologic mediastinal/hilar lymphadenopathy. Interval Roxanna fundoplication surgery. Bony thorax intact. CT abdomen/pelvis reported separately. Impression: 1. Status post Roxanna fundoplication without complications. 2. Again incidental old granulomatous disease. 3. Remaining CT chest with contrast exam is negative. Comment: Preliminary interpretation was made by [facility]. No critical discrepancy.
--- NOTE | 2020-11-02 19:31 | XRAY ---
Indication: Left lower rib pain. Left upper quadrant pain. Multiple contiguous axial images obtained through the abdomen and pelvis using 80 cc Isovue 370 contrast. Enteric contrast also used. Comparison: None CT chest reported separately. Contrasted stomach and bowel loops appear nonobstructed. Normal air-filled appendix. No free fluid/air. Remaining liver, gallbladder, pancreas, spleen, adrenal glands, kidneys, ureters, and bladder are normal in CT appearance and attenuation. Aorta is normal course and caliber. No pathologic retroperitoneal lymphadenopathy. Osseous structures intact with mild lumbosacral degenerative disc disease. Impression: 1. Lumbosacral degenerative disc disease better evaluated with MRI if clinically warranted. 2. Remaining CT abdomen/pelvis with contrast exam is negative. Comment: Preliminary interpretation was made by [facility]. No critical discrepancy.
== END 2020-11-02 16:38 | disposition home or self-care (01) ==
LOC: ED 11:56
DX: R07.89 Other chest pain (principal); G89.18 Other acute postprocedural pain
CPT/HCPCS: 36000; 36415; 71260; 74177; 80053; 81001; 82150; 83605; 83690; 84484; 85025; 93005; 96360; 96374; 96375; 99284; J1170; J2060; J2405; A9270-GY

== ENCOUNTER 2022-05-18 07:16 | Emergency (ER) | payer OTHER ==
--- NOTE | 2022-05-18 07:18 | ERPHSYRPT ---
- History of Present Illness Time Seen by Provider: 05/18/22 07:18 Source: patient Exam Limitations: no limitations Physician History: This is a 42-year-old white male patient of Dr. Gan who presents with 3-day history of coughing and body aches. He has no known exposure to individuals with diagnosis of viral illness. Patient took an [id number] COVID test yesterday which was negative. Patient states that he gets this type of clinical picture whenever they remodel the house. He gets treated for bronchitis and is covered for mold. Patient denies chest pain. He has no abdominal pain. He said no fevers. He has no nausea vomiting or diarrhea. Timing/Duration: day(s) (3) Cough Quality/Degree: mild Possible Cause: occasional episodes Modifying Factors: Improves With: coughing Associated Symptoms: cough, muscle aches, No fever, No chest pain/soreness, No earache, No headache Allergies/Adverse Reactions: clarithromycin Allergy (Severe, Verified 05/18/22 07:17) Lightheadedness Sulfa (Sulfonamide Antibiotics) Allergy (Severe, Verified 05/18/22 07:17) Difficulty Breathing aspirin Allergy (Intermediate, Verified 05/18/22 07:17) Difficulty Breathing tramadol HCl [From Ultram] Allergy (Intermediate, Verified 05/18/22 07:17) Difficulty Breathing Penicillins Allergy (Mild, Verified 05/18/22 07:17) Difficulty Breathing Home Medications: ALPRAZolam 1 MG [Xanax 1 mg] 1 mg PO DAILY 05/18/22 [History] Montelukast Sodium 10 mg [Singulair 10 MG] 10 mg PO DAILY 05/18/22 [History] Hx Tetanus, Diphtheria Vaccination/Date Given: Yes Hx Influenza Vaccination/Date Given: No Hx Pneumococcal Vaccination/Date Given: No Travel Risk - International Travel Have you traveled outside of the country in past 3 weeks: No - Coronavirus Screening Are you exhibiting any of the following symptoms?: Yes Symptoms: Cough: New Onset, Headaches/Body Aches/Fatigue - Vaccine Status Have you recieved a Covid-19 vaccination: No - Review of Systems Constitutional: No Symptoms Eyes: No Symptoms Ears, Nose, & Throat: No Symptoms Respiratory: Cough Cardiac: No Symptoms Abdominal/Gastrointestinal: No Symptoms Genitourinary Symptoms: No Symptoms Musculoskeletal: Arthralgias, Myalgias Skin: No Symptoms Neurological: No Symptoms Psychological: No Symptoms Endocrine: No Symptoms Hematologic/Lymphatic: No Symptoms Immunological/Allergic: No Symptoms All Other Systems: Reviewed and Negative - Past Medical History Pertinent Past Medical History: Yes Neurological History: Migraines, Other Cardiac History: No Pertinent History Respiratory History: No Pertinent History Endocrine Medical History: No Pertinent History Musculoskeletal History: Fractures, Other GI Medical History: GERD, Other Psycho-Social History: Depression, Other Other Medical History: HX SURGERY LEFT WRIST FOR TORN CARTILAGE AND CARPAL TUNNEL 10/29/19. HX OF BILATERAL CARTILAGE TEARS WITH HX OF 2 ARTHROSCOPIC SURGERIES EACH KNEE. MOST RECENT SURGERY 2010. HX ROOSEVELT ANKLE SURGERIES DUE TO TORN LIGAMENTS. PATIENT STATES HE IS UNABLE TO REMEMBER DATES. ptsd, hital hernia. FX RIGHT FOREARM CHILD. RIGHT UPPER RIB RESECTION WITH BLOOD CLOT REMOVAL DUE TO TOS. INGUINAL HERNIA REPAIR LEFT. TONSILLECTOMY - Past Surgical History Past Surgical History: Yes Respiratory: Other Gastrointestinal: Hernia Repair Musculoskeletal: Orthopedic Surgery Other Surgical History: r rib resection - hernia repair, thoraic outlet syndrome k,arm surgery - Social History Smoking Status: Never smoker Exposure to second hand smoke: No Drug Use: none Patient Lives Alone: No Significant Family History: no pertinent family hx - Nursing Vital Signs Nursing Vital Signs: Initial Vital Signs Temperature 97.0 F 05/18/22 07:23 Pulse Rate 79 05/18/22 07:23 Respiratory Rate 18 05/18/22 07:23 Blood Pressure 135/95 05/18/22 07:23 O2 Sat by Pulse Oximetry 94 L 05/18/22 07:23 Pain Scale Pain Intensity 2 - Physical Exam General Appearance: no apparent distress, alert, anxiety Eye Exam: PERRL/EOMI, eyes nml inspection Ears, Nose, Throat Exam: normal ENT inspection, moist mucous membranes Neck Exam: normal inspection, non-tender, supple, full range of motion Respiratory Exam: normal breath sounds, lungs clear, airway intact, No chest tenderness, No respiratory distress Cardiovascular Exam: regular rate/rhythm, normal heart sounds, normal peripheral pulses Gastrointestinal/Abdomen Exam: soft, normal bowel sounds, No tenderness Rectal Exam: not done Back Exam: normal inspection, normal range of motion, No CVA tenderness, No vertebral tenderness Extremity Exam: normal inspection, normal range of motion, pelvis stable Neurologic Exam: alert, oriented x 3, cooperative, wood treating inspector II-XII nml as tested, normal mood/affect, nml cerebellar function, nml station & gait, sensation nml Skin Exam: normal color, warm, dry Lymphatic Exam: No adenopathy SpO2 Interpretation: borderline oxygenation O2 Delivery: Room Air - Course Nursing assessment & vital signs reviewed: Yes EKG Interpreted by Me: RATE (78), Sinus Rhythm, NORMAL AXIS, NORMAL INTERVALS, NORMAL QRS, NORMAL ST-T, Other (No acute ischemic changes on today's EKG.) Ordered Tests: Active Orders 24 hr Category Date Time Status EKG-ER Only STAT Care 05/18/22 07:23 Active CHEST 1 VIEW (PORTABLE) Stat Exams 05/18/22 07:22 Completed Medication Summary Discontinued Medications Generic Name Dose Route Start Last Admin Trade Name Freq PRN Reason Stop Dose Admin Ketorolac Tromethamine 30 mg 05/18/22 08:54 05/18/22 08:56 Ketorolac Tromethamine 30 Mg/Ml Inj IV 05/18/22 08:55 30 mg STAT ONE Administration Ketorolac Tromethamine Confirm 05/18/22 08:55 Ketorolac Tromethamine 30 Mg/Ml Inj Administered 05/18/22 08:56 Dose 30 mg .ROUTE .STK-MED ONE Lab/Rad Data: Laboratory Results 05/18/22 Range/Units 07:41 Influenza Type A Ag NEGATIVE (NEGATIVE) Influenza Type B Ag NEGATIVE (NEGATIVE) RSV (PCR) NEGATIVE (Negative) SARS-CoV-2 (PCR) POSITIVE A (NEGATIVE) Group A Strep Antibody NOT DETECTED (NEGATIVE) - Progress Progress: improved Air Movement: good Progress Note: 05/18/22 09:06 Chest x-ray shows no acute cardiopulmonary process. Blood Culture(s) Obtained: No Antibiotics given: No Counseled pt/family regarding: lab results, diagnosis, need for follow-up, rad results - Departure Departure Disposition: Home Clinical Impression: COVID-19 virus infection Condition: Stable Critical Care Time: No Referrals: ROSELINE GAN MD [Primary Care Provider] - Follow up/PCP as directed Additional Instructions: Take your medication as prescribed. Avoid exposure to any type of smoke. Follow-up with your primary care physician as an patient for further evaluation management. Prescriptions: Hydrocodone/Acetaminophen [Hydrocodone-Acetamn 7.5-325/15] 10 ml PO Q8H PRN PRN #120 ml MDD 30 ml PRN Reason: Cough Prednisone 10 mg [Deltasone 10 mg] 10 mg PO TID #12 tablet Fluconazole 100 mg [Diflucan 100 MG] 100 mg PO DAILY #2 tablet Albuterol 8 gm Mdi Hfa [Ventolin Hfa MDI] 8 gm IH Q4H #1 unit
[2022-05-18 08:07] LABS: Group A Strep NOT DETECTED (NEGATIVE)
[2022-05-18 08:18] LABS: INFLUENZA A NEGATIVE (NEGATIVE); INFLUENZA B NEGATIVE (NEGATIVE); RESPIRATORY SYNCTIAL VIRUS NEGATIVE (Negative)
[2022-05-18 08:20] LABS: SARS-CoV-2 Xpert Express POSITIVE (NEGATIVE)
[2022-05-18] MEDS ORDERED: TORAdol 30 mg Injection IV ONE (08:54)
[2022-05-18] MEDS ORDERED: TORAdol 30 mg Injection ONE (08:55)
--- NOTE | 2022-05-18 08:58 | XRAY ---
Indication: Fever, cough, chills, and body aches. Comparison: October 15, 2020 Portable chest again demonstrates normal heart and lungs with incidental left upper lobe calcified granuloma. Bony thorax intact again with incidental right 1st rib resection and overlying surgical clips. No new/acute findings.
[2022-05-18 09:28] VITALS: BP 131/77; PULSE 74; O2SAT 95
== END 2022-05-18 09:28 | disposition home or self-care (01) ==
LOC: ED 07:16
DX: U07.1 COVID-19 (principal); R05.1 Acute cough; M79.10 Myalgia, unspecified site; Z79.891 Long term (current) use of opiate analgesic; Z79.52 Long term (current) use of systemic steroids; Z79.899 Other long term (current) drug therapy; Z28.310 Unvaccinated for COVID-19
CPT/HCPCS: 0241U; 71045; 87651; 93005; 96374; 99284; J1885

== ENCOUNTER 2023-01-31 19:08 | Emergency (ER) | payer OTHER | END 2023-01-31 20:42 | disposition left against medical advice (07) | LOC: ED 19:08 | DX: Z53.21 Procedure and treatment not carried out due to patient leaving prior to being seen by health care provider (principal) ==